=== PATIENT | female | born 1970 | race Caucasian/White ===

== ENCOUNTER 2024-03-05 13:01 | Outpatient (CLI) | payer MEDICAID ==
[2024-03-05 13:41] LABS: THYROID STIMULATING HORMONE 0.49 uIU/mL (0.34-5.60)
== END 2024-03-05 13:02 | disposition home or self-care (01) ==
LOC: LAB 13:01
PROVIDERS: ATTEND Nurse Practitioner Family
DX: E03.9 Hypothyroidism, unspecified (principal); E06.3 Autoimmune thyroiditis; E55.9 Vitamin D deficiency, unspecified
CPT/HCPCS: 36415; 82306; 84443

== ENCOUNTER 2024-04-15 08:00 | Outpatient (CLI) | payer MEDICAID ==
[2024-04-17 20:08] LABS: HSV-1 DNA Negative (Negative); HSV-2 DNA Negative (Negative)
== END 2024-04-15 23:59 | disposition home or self-care (01) ==
LOC: LAB.WC 08:00
PROVIDERS: ATTEND Nurse Practitioner
DX: B00.9 Herpesviral infection, unspecified (principal)
CPT/HCPCS: 87529

== ENCOUNTER 2024-05-03 21:18 | Emergency (ER) | payer MEDICAID ==
[2024-05-03 21:43] LABS: BILIRUBIN,URINE NEGATIVE (NEGATIVE); GLUCOSE, URINE (UA) NEGATIVE (NEGATIVE); KETONES,URINE (UA) NEGATIVE (NEGATIVE); LEUKOCYTE ESTERASE, URINE NEGATIVE (NEGATIVE); NITRITE,URINE NEGATIVE (NEGATIVE); OCCULT BLOOD,URINE MODERATE (NEGATIVE); PROTEIN,URINE NEGATIVE (NEGATIVE); UROBILINOGEN,URINE 0.2 (NORMAL) E.U./dL (NORMAL)
[2024-05-03 21:44] LABS: CLARITY,URINE CLEAR (CLEAR)
--- NOTE | 2024-05-03 21:47 | ED Physician Documentation ---
History of Present Illness - Stated complaint Stated Complaint: - Chief complaint Chief Complaint: Abd Pain - History obtained from History obtained from: Patient - History of Present Illness Pain level max: 5 Pain level now: 4 - Additonal information Additional information: Patient is a 53-year-old female who presents to the emergency department With dysuria and urinary frequency ongoing for the past several days. Feels similar to prior UTIs. She has been taking an old prescription of Bactrim without relief of symptoms. No fevers. No chills. No nausea, vomiting, diarrhea. No vaginal bleeding or discharge. She states it feels like there is an air compressor in her urethra that is blowing up her bladder. She states that the urine has been cloudy at home, but today it is clearing up, she states that she is still having dysuria, frequency and urinary symptoms however. Review of Systems Constitutional: denies: Fever, Chills GI: denies: Vomiting, Diarrhea PD PAST MEDICAL HISTORY - Past Medical History Past Medical History: No - Past Surgical History Past Surgical History: No - Present Medications Home Medications: Ambulatory Orders Medication Instructions Recorded Confirmed Cefpodoxime Proxetil [Vantin] 100 mg PO Q12H #14 tablet 05/03/24 - Allergies Allergies/Adverse Reactions: Allergies Allergy/AdvReac Type Severity Reaction Status Date / Time phenazopyridine Allergy Anaphylaxis Verified 05/03/24 21:32 [From Pyridium] - Social History Does the pt smoke?: No Smoking Status: Never smoker Does the pt drink ETOH?: No Does the pt have substance abuse?: No - Immunizations Immunizations are current?: Yes - POLST Patient has POLST: No PD ED PE NORMAL - Vitals Vital signs reviewed: Yes - General General: Alert and oriented X 3, No acute distress - HEENT HEENT: Moist mucous membranes - Neck Neck: Supple, no meningeal sign - Cardiac Cardiac: RRR - Respiratory Respiratory: No respiratory distress, Clear bilaterally - Abdomen Abdomen: Soft, Non tender, Non distended - Derm Derm: Warm and dry - Neuro Neuro: Alert and oriented X 3 Results - Vitals Vitals: Vital Signs - 24 hr 05/03/24 05/03/24 21:29 22:28 Temperature 36.3 C L 36.8 C Heart Rate 82 71 Respiratory 16 16 Rate Blood Pressure 126/80 122/68 O2 Saturation 99 98 Oxygen O2 Source Room air - Labs Labs: Laboratory Tests 05/03/24 21:32 Urine Color YELLOW Urine Clarity CLEAR Urine pH 6.0 Ur Specific [place] 1.010 Urine Protein NEGATIVE Urine Glucose (UA) NEGATIVE Urine Ketones NEGATIVE Urine Occult Blood MODERATE H Urine Nitrite NEGATIVE Urine Bilirubin NEGATIVE Urine Urobilinogen 0.2 (NORMAL) Ur Leukocyte Esterase NEGATIVE Urine RBC 0-5 Urine WBC 0-3 Ur Epithelial Cells FEW Transitional Ur Squamous Epith Cells RARE Squamous Urine Bacteria None Seen Ur Microscopic Review INDICATED Urine Culture Comments NOT INDICATED PD Medical Decision Making - ED course Complexity details: reviewed results, re-evaluated patient, considered differential, d/w patient ED course: Patient's urine does not appear infected, but she is still having symptoms. She states that she was recently having to perform sponge baths as her well water was not working for 2 days. She denies any vaginal bleeding, itching, discharge. We did discuss a pelvic examination, laboratory testing and further evaluation of her symptoms, she does not want to have any of this performed at this time. She would like to try to change antibiotics and see if that helps. We have given the patient a dose of Rocephin tonight. Will change her oral antibiotic as well. If she fails to improve in the next 24 to 48 hours, she will return for more extensive testing and workup. Patient is very well- appearing, nontoxic. Afebrile. Abdomen is soft, nontender nondistended. No CVA tenderness. No peritoneal signs. Patient counseled regarding signs and symptoms for which I believe and urgent re-evaluation would be necessary. Patient with good understanding of and agreement to plan and is comfortable going home at this time This document was made in part using voice recognition software. While efforts are made to proofread this document, sound alike and grammatical errors may occur. Departure - Departure Disposition: 01 Home, Self Care Clinical Impression: Dysuria Condition: Good Instructions: ED Dysuria Uncertain Cause Follow-Up: Alice Rebollar FNP [Primary Care Provider] - Prescriptions: Cefpodoxime Proxetil [Vantin] 100 mg PO Q12H #14 tablet Comments: Your prescription was sent to [facility] in [place]. Take all antibiotics until gone. As we discussed if you are not improving as expected over the next 24 to 48 hours, please return for further evaluation. Forms: PCP List Discharge Date/Time: 05/03/24 22:29
[2024-05-03 21:51] LABS: BACTERIA,URINE None Seen /HPF (None Seen); EPITHELIAL CELLS,UR FEW Transitional /HPF (<= Few); RBC,URINE 0-5 /HPF (0-5); SQUAMOUS EPITHELIAL CELL,UR RARE Squamous (<= Few); WBC,URINE 0-3 /HPF (0-5)
[2024-05-03] MEDS: cefTRIAXone 1 GM VIAL IM STA (22:24)
[2024-05-03] MEDS: LIDOCAINE 1% 2 ML VIAL MC ONE (22:25)
[2024-05-03 22:31] VITALS: BP 122/68; O2SAT 98
== END 2024-05-03 22:29 | disposition home or self-care (01) ==
LOC: ED 21:18
DX: R30.0 Dysuria (principal)
CPT/HCPCS: 81001; 81003; 87086; 96372; 99283